=== PATIENT | female | born 1965 | race Caucasian/White ===

== ENCOUNTER 2023-10-13 16:54 | Emergency (ER) | payer OTHER ==
[2023-10-13 17:29] VITALS: BP 149/83; PULSE 79; RESP 18; TEMP 98.2; BMI 31.9
[2023-10-13] MEDS ORDERED: SODIUM CHLORIDE 0.9% 500 ML INFUS.BAG IV ONE (17:55)
[2023-10-13] MEDS ORDERED: ONDANSETRON 4 MG/2 ML VIAL IVPUSH ONE (17:55)
[2023-10-13] MEDS ORDERED: FAMOTIDINE 20 MG/50 ML IVPB 20 MG/50 ML MG IVPB ONE (17:55)
[2023-10-13] MEDS ORDERED: MAG HYDROX/AL HYDROX/SIMETH 30 ML UNIT-DOSE CUP PO ONE (17:55)
[2023-10-13 18:46] LABS: BASO % 1.3 % (0-2.0); EOS % 1.1 % (0-4.5); HEMATOCRIT 38.5 % (32.4-45.2); HEMOGLOBIN 12.6 GM/dL (10.7-15.3); LYMPH % 29.7 % (8-40); MCH 29.5 pg (25.7-33.7); MCHC 32.8 g/dl (32.0-36.0); MEAN CELL VOLUME 90.1 fl (80-96); MEAN PLT VOLUME 7.7 fl (7.5-11.1); MONO % 5.8 % (3.8-10.2); NEUT % 62.1 % (42.8-82.8); PLATELET COUNT 388 10^3/uL (134-434); RBC 4.27 M/mm3 (3.60-5.2); RDW 13.5 % (11.6-15.6)
[2023-10-13 18:58] LABS: POTASSIUM 4.3 mmol/L (3.5-5.1)
[2023-10-13 19:00] LABS: CALCIUM 9.3 mg/dL (8.5-10.1); MAGNESIUM 2.1 mg/dL (1.8-2.4)
[2023-10-13 19:01] LABS: ALBUMIN 3.9 g/dl (3.4-5.0); BLOOD UREA NITROGEN 14.7 mg/dL (7-18)
[2023-10-13 19:04] LABS: CREATININE 0.8 mg/dL (0.55-1.3)
[2023-10-13 19:05] LABS: TOT PROT 7.8 g/dl (6.4-8.2)
[2023-10-13 19:06] LABS: BILIRUBIN,TOTAL 0.1 mg/dL (0.2-1)
[2023-10-13 22:20] LABS: PH,URINE 7.5 (5.0-8.0); URINE APPEARANCE CLEAR; URINE BILIRUBIN NEGATIVE (NEGATIVE); URINE COLOR YELLOW; URINE GLUCOSE (UA) NEGATIVE (NEGATIVE); URINE KETONE NEGATIVE (NEGATIVE); URINE LEUK ESTERASE NEGATIVE (NEGATIVE); URINE NITRITE NEGATIVE (NEGATIVE); URINE PROTEIN NEGATIVE (NEGATIVE); URINE UROBILINOGEN 0.2 mg/dL (0.2-1.0)
== END 2023-10-14 00:35 | disposition home or self-care (01) ==
LOC: JER 16:54
PROC: 3E033GC Introduction of Other Therapeutic Substance into Peripheral Vein, Percutaneous Approach (ICD-10-PCS; principal; 2023-10-13)
PROC: 3E033GC Introduction of Other Therapeutic Substance into Peripheral Vein, Percutaneous Approach (ICD-10-PCS; 2023-10-13)
DX: R07.9 Chest pain, unspecified (principal); R10.12 Left upper quadrant pain; R11.0 Nausea; R05.9 Cough, unspecified; R42 Dizziness and giddiness; R51.9 Headache, unspecified; R68.2 Dry mouth, unspecified
CPT/HCPCS: 36415; 70450-TC; 71046-TC-FY; 74177-TC; 80053; 81003; 82550; 83690; 83735; 84484; 85025; 87086; 93005; 93010; 99285-25; Q9967

== ENCOUNTER 2023-11-13 15:53 | Emergency (ER) | payer OTHER ==
[2023-11-13 15:59] VITALS: BP 137/83; PULSE 78; RESP 18; TEMP 98; BMI 31.9
[2023-11-13] MEDS ORDERED: FAMOTIDINE 20 MG/50 ML IVPB 20 MG/50 ML MG IVPB ONE ×2 (16:41→17:02)
[2023-11-13] MEDS ORDERED: MAG HYDROX/AL HYDROX/SIMETH 30 ML UNIT-DOSE CUP PO ONE (16:41)
[2023-11-13] MEDS ORDERED: ACETAMINOPHEN 1000 MG/100 ML BAG IVPB ONE (16:42)
[2023-11-13] MEDS ORDERED: MAG HYDROX/AL HYDROX/SIMETH 30 ML UNIT-DOSE CUP ONE (17:02)
[2023-11-13] MEDS ORDERED: ACETAMINOPHEN INJECTION 100 ML IVPB ONE (17:02)
[2023-11-13 17:21] LABS: HEMATOCRIT 39.1 % (32.4-45.2); HEMOGLOBIN 13.4 GM/dL (10.7-15.3); MCH 30.5 pg (25.7-33.7); MCHC 34.3 g/dl (32.0-36.0); MEAN PLT VOLUME 8.4 fl (7.5-11.1); PLATELET COUNT 370 10^3/uL (134-434); RBC 4.39 M/mm3 (3.60-5.2); RDW 13.6 % (11.6-15.6); WHITE BLOOD COUNT 4.7 K/mm3 (4.0-10.0)
[2023-11-13] MEDS ORDERED: LIDOCAINE 4% PATCH TP ONE ×3 (17:25→17:32)
[2023-11-13 17:27] LABS: INR 1.03 (0.83-1.09); PROTHROMBIN TIME (PATIENT) 11.9 SEC (9.7-13.0)
[2023-11-13 17:29] LABS: ACTIVATED PTT 37.7 SECONDS (25.2-36.5)
[2023-11-13 17:44] LABS: POTASSIUM 4.6 mmol/L (3.5-5.1)
[2023-11-13 17:47] LABS: BLOOD UREA NITROGEN 11.2 mg/dL (7-18); CALCIUM 9.1 mg/dL (8.5-10.1)
[2023-11-13 17:50] LABS: CREATININE 0.9 mg/dL (0.55-1.3)
[2023-11-13] MEDS ORDERED: KETOROLAC TROMETHAMINE 15 MG/ML VIAL IVPUSH ONE (17:50)
[2023-11-13 17:52] LABS: BILIRUBIN,TOTAL 0.2 mg/dL (0.2-1)
[2023-11-13] MEDS ORDERED: KETOROLAC TROMETHAMINE 15 MG/ML VIAL ONE (18:06)
[2023-11-13] MEDS ORDERED: LIDOCAINE PATCH REMOVAL MC SCH (22:00)
== END 2023-11-13 18:57 | disposition home or self-care (01) ==
LOC: JER 15:53
PROC: 3E033GC Introduction of Other Therapeutic Substance into Peripheral Vein, Percutaneous Approach (ICD-10-PCS; principal; 2023-11-13)
PROC: 3E033NZ Introduction of Analgesics, Hypnotics, Sedatives into Peripheral Vein, Percutaneous Approach (ICD-10-PCS; 2023-11-13)
PROC: 3E0333Z Introduction of Anti-inflammatory into Peripheral Vein, Percutaneous Approach (ICD-10-PCS; 2023-11-13)
DX: R07.89 Other chest pain (principal); M25.512 Pain in left shoulder; Z20.822 Contact with and (suspected) exposure to COVID-19
CPT/HCPCS: 0241U-QW; 36415; 73030-TC-LT-FY; 80053; 83735; 84484; 85027; 85610; 85730; 93005; 93010; 99285-25; J0131

== ENCOUNTER 2023-12-08 16:17 | Emergency (ER) | payer OTHER ==
[2023-12-08 16:24] VITALS: BP 124/61; PULSE 84; RESP 18; TEMP 98.1; BMI 31.6
[2023-12-08] MEDS ORDERED: LIDOCAINE 4% PATCH TP ONE (17:18)
[2023-12-08] MEDS ORDERED: ACETAMINOPHEN 325 MG TABLET (FP) ONE (17:19)
[2023-12-08] MEDS: ACETAMINOPHEN 500 MG TABLET (FP) PO ONE (17:23)
[2023-12-08] MEDS: LIDOCAINE 4% PATCH TP ONE (17:23)
[2023-12-08 17:41] LABS: EOS % 5.6 % (0-4.5); HEMATOCRIT 37.9 % (32.4-45.2); HEMOGLOBIN 12.9 GM/dL (10.7-15.3); LYMPH % 25.9 % (8-40); MCH 30.3 pg (25.7-33.7); MCHC 34.1 g/dl (32.0-36.0); MEAN CELL VOLUME 88.8 fl (80-96); NEUT % 61.5 % (42.8-82.8); PLATELET COUNT 391 10^3/uL (134-434); RBC 4.27 M/mm3 (3.60-5.2); RDW 13.7 % (11.6-15.6); WHITE BLOOD COUNT 5.8 K/mm3 (4.0-10.0)
[2023-12-08 18:07] LABS: POTASSIUM 4.5 mmol/L (3.5-5.1)
[2023-12-08 18:09] LABS: ALBUMIN 3.9 g/dl (3.4-5.0); CALCIUM 9.6 mg/dL (8.5-10.1)
[2023-12-08 18:13] LABS: CREATININE 0.7 mg/dL (0.55-1.3)
[2023-12-08 18:14] LABS: BILIRUBIN,TOTAL 0.2 mg/dL (0.2-1); TOT PROT 7.6 g/dl (6.4-8.2)
[2023-12-08] MEDS ORDERED: KETOROLAC TROMETHAMINE 15 MG/ML VIAL ONE (19:38)
[2023-12-08] MEDS: KETOROLAC TROMETHAMINE 15 MG/ML VIAL IVPUSH ONE (19:41)
[2023-12-08] MEDS ORDERED: LIDOCAINE PATCH REMOVAL MC ONE (22:00)
== END 2023-12-08 20:30 | disposition home or self-care (01) ==
LOC: JER 16:17
PROC: 3E0333Z Introduction of Anti-inflammatory into Peripheral Vein, Percutaneous Approach (ICD-10-PCS; principal; 2023-12-08)
DX: M25.512 Pain in left shoulder (principal); R07.89 Other chest pain; M25.522 Pain in left elbow
CPT/HCPCS: 36415; 71046-TC-FY; 80053; 84484; 85025; 93005; 93010; 99285-25

== ENCOUNTER 2024-05-28 12:12 | Emergency (ER) | payer OTHER ==
[2024-05-28 12:56] VITALS: BP 111/76; PULSE 94; RESP 18; TEMP 101.1; BMI 31.9
[2024-05-28] MEDS ORDERED: ACETAMINOPHEN INJECTION 100 ML IVPB ONE (13:26)
[2024-05-28] MEDS ORDERED: ONDANSETRON 4 MG/2 ML VIAL ONE (13:26)
[2024-05-28 13:51] LABS: BASO % 0.6 % (0-2.0); EOS % 0.6 % (0-4.5); HEMATOCRIT 36.1 % (32.4-45.2); HEMOGLOBIN 12.3 GM/dL (10.7-15.3); LYMPH % 15.3 % (8-40); MCH 29.9 pg (25.7-33.7); MEAN CELL VOLUME 88.1 fl (80-96); MONO % 11.6 % (3.8-10.2); NEUT % 71.9 % (42.8-82.8); PLATELET COUNT 335 10^3/uL (134-434); RDW 13.8 % (11.6-15.6); WHITE BLOOD COUNT 7.9 K/mm3 (4.0-10.0)
[2024-05-28] MEDS: SODIUM CHLORIDE 1,000 ML IV STA (13:53)
[2024-05-28] MEDS: ONDANSETRON 4 MG/2 ML VIAL IVPUSH ONE (13:53)
[2024-05-28] MEDS: ACETAMINOPHEN 1000 MG/100 ML BAG IVPB ONE (13:53)
[2024-05-28 13:55] LABS: EPI CELLS 1 /uL (0-25.1); HYALINE CASTS 3 /uL (0-3.1); PH,URINE 7.5 (5.0-8.0); URINE APPEARANCE CLEAR; URINE BACTERIA >9,000 /uL (0-1359); URINE BILIRUBIN NEGATIVE (NEGATIVE); URINE COLOR YELLOW; URINE GLUCOSE (UA) NEGATIVE (NEGATIVE); URINE KETONE NEGATIVE (NEGATIVE); URINE LEUK ESTERASE 2+ (NEGATIVE); URINE NITRITE POSITIVE (NEGATIVE); URINE PROTEIN 1+ (NEGATIVE); URINE RBC 52 /uL (0-23.9); URINE UROBILINOGEN 0.2 mg/dL (0.2-1.0); URINE WBC 576 /uL (0-25.8)
[2024-05-28 14:16] LABS: POTASSIUM 4.3 mmol/L (3.5-5.1)
[2024-05-28 14:18] LABS: ALBUMIN 3.7 g/dl (3.4-5.0); BLOOD UREA NITROGEN 9.2 mg/dL (7-18)
[2024-05-28 14:22] LABS: CREATININE 0.7 mg/dL (0.55-1.3)
[2024-05-28 14:23] LABS: BILIRUBIN,TOTAL 0.5 mg/dL (0.2-1); TOT PROT 7.5 g/dl (6.4-8.2)
[2024-05-28 15:19] LABS: HIV INTERPRETATION NEGATIVE (NEGATIVE)
[2024-05-28] MEDS ORDERED: CEFTRIAXONE 1 GM/50 ML BAG ONE (16:06)
[2024-05-28] MEDS: CEFTRIAXONE 1,000 MG in DEXTROSE 5%-WATER - 50 ML IVPB ONE (16:33)
== END 2024-05-28 18:29 | disposition home or self-care (01) ==
LOC: JER 12:12
PROC: 3E03329 Introduction of Other Anti-infective into Peripheral Vein, Percutaneous Approach (ICD-10-PCS; principal; 2024-05-28)
PROC: 3E033NZ Introduction of Analgesics, Hypnotics, Sedatives into Peripheral Vein, Percutaneous Approach (ICD-10-PCS; 2024-05-28)
PROC: 3E033GC Introduction of Other Therapeutic Substance into Peripheral Vein, Percutaneous Approach (ICD-10-PCS; 2024-05-28)
PROC: 3E0337Z Introduction of Electrolytic and Water Balance Substance into Peripheral Vein, Percutaneous Approach (ICD-10-PCS; 2024-05-28)
DX: N39.0 Urinary tract infection, site not specified (principal); N12 Tubulo-interstitial nephritis, not specified as acute or chronic; R39.198 Other difficulties with micturition; R31.9 Hematuria, unspecified; R35.0 Frequency of micturition; M54.50 Low back pain, unspecified; R10.30 Lower abdominal pain, unspecified
CPT/HCPCS: 36415; 74177-TC; 80053; 81003; 85025; 86803; 87086; 87186; 87389; 99285-25; J0131; Q9967

== ENCOUNTER 2024-05-31 13:10 | Emergency (ER) | payer OTHER ==
[2024-05-31 13:14] VITALS: BMI 31.9
[2024-05-31 14:52] LABS: URINE APPEARANCE CLEAR; URINE BILIRUBIN NEGATIVE (NEGATIVE); URINE COLOR YELLOW; URINE GLUCOSE (UA) NEGATIVE (NEGATIVE); URINE KETONE NEGATIVE (NEGATIVE); URINE LEUK ESTERASE NEGATIVE (NEGATIVE); URINE NITRITE NEGATIVE (NEGATIVE); URINE PROTEIN NEGATIVE (NEGATIVE); URINE UROBILINOGEN 0.2 mg/dL (0.2-1.0)
[2024-05-31 15:32] VITALS: BP 110/72; PULSE 72; RESP 19; TEMP 98.6
== END 2024-05-31 15:32 | disposition home or self-care (01) ==
LOC: JER 13:10
DX: N39.0 Urinary tract infection, site not specified (principal)
CPT/HCPCS: 81003; 87086; 99283-25

== ENCOUNTER 2025-01-09 13:57 | Emergency (ER) | payer OTHER ==
[2025-01-09 14:11] VITALS: BP 122/75; PULSE 76; RESP 16; TEMP 98.4; BMI 31.9
[2025-01-09] MEDS ORDERED: ONDANSETRON *ODT* 4 MG TABLET ONE (15:03)
[2025-01-09] MEDS ORDERED: ACETAMINOPHEN 500 MG TABLET (FP) ONE (15:03)
[2025-01-09] MEDS ORDERED: FAMOTIDINE 20 MG TABLET ONE (15:03)
[2025-01-09] MEDS: FAMOTIDINE 20 MG TABLET PO ONE (15:04)
[2025-01-09] MEDS: ACETAMINOPHEN 500 MG TABLET (FP) PO ONE (15:05)
[2025-01-09] MEDS: ONDANSETRON *ODT* 4 MG TABLET SL ONE (15:05)
[2025-01-09 15:18] LABS: EPI CELLS 0 /uL (0-25.1); HYALINE CASTS 0 /uL (0-3.1); PH,URINE 7.5 (5.0-8.0); URINE APPEARANCE CLEAR; URINE BACTERIA 147 /uL (0-1359); URINE BILIRUBIN NEGATIVE (NEGATIVE); URINE COLOR YELLOW; URINE GLUCOSE (UA) NEGATIVE (NEGATIVE); URINE KETONE NEGATIVE (NEGATIVE); URINE LEUK ESTERASE 1+ (NEGATIVE); URINE NITRITE NEGATIVE (NEGATIVE); URINE PROTEIN NEGATIVE (NEGATIVE); URINE RBC 24 /uL (0-23.9); URINE UROBILINOGEN 0.2 mg/dL (0.2-1.0); URINE WBC 134 /uL (0-25.8)
== END 2025-01-09 15:42 | disposition home or self-care (01) ==
LOC: JERFT 13:57
DX: N39.0 Urinary tract infection, site not specified (principal); R11.0 Nausea; R10.30 Lower abdominal pain, unspecified; R51.9 Headache, unspecified; R35.0 Frequency of micturition; R39.15 Urgency of urination
CPT/HCPCS: 0241U-QW; 81003; 87086; 87186; 99283-25; Q0162